=== PATIENT | female | born 1950 | race Caucasian/White ===

== ENCOUNTER → 2018-08-23 | Outpatient (CLI) | payer MEDICARE, BC ==
[2018-08-23 09:43] LABS: CHOLESTEROL RISK RATIO 2.478 (<5)
== END ==
LOC: M WUC 08:16
DX: E78.00 Pure hypercholesterolemia, unspecified (principal)

== ENCOUNTER 2020-09-12 13:31 | Emergency (ER) | payer MEDICARE, BC ==
[~2020-09-12] VITALS: Ht 165.1 cm; Wt 70.0 kg
[2020-09-12] MEDS ORDERED: VALS40TA9 PO (13:48)
[2020-09-12 14:27] LABS: BASO % 0.3 % (0.0-1.0); EOS % 0.3 % (0.0-3.0); HEMOGLOBIN 14.9 g/dl (12.0-15.5); LYMPH # 0.7 10^3/uL (1.5-5.0); LYMPH % 9.1 % (24.0-44.0); MEAN CORPUSCULAR HEMOGLOBIN 31.6 pg (27.0-33.0); MEAN CORPUSCULAR HGB CONC 32.4 g/dl (32.0-36.5); MEAN CORPUSCULAR VOLUME 97.7 fl (80.0-96.0); MONO # 0.5 10^3/uL (0.0-0.8); MONO % 7.4 % (2.0-8.0); NEUTROPHILS # 5.9 10^3/uL (1.5-8.5); NEUTROPHILS % 82.6 % (36.0-66.0); PLATELET COUNT, AUTOMATED 234 10^3/uL (150-450); RED BLOOD COUNT 4.71 10^6/uL (4.00-5.40); WHITE BLOOD COUNT 7.2 10^3/uL (4.0-10.0)
[2020-09-12 14:55] LABS: ALBUMIN 3.7 GM/DL (3.2-5.2); ALT/SGPT 21 U/L (12-78); BILIRUBIN,DIRECT 0.1 MG/DL (0.0-0.2); BILIRUBIN,TOTAL 0.4 MG/DL (0.2-1.0); CK-MB VALUE MASS 1.5 NG/ML (<3.6); CPK CREATINE PHOSPHOKINASE 93 U/L (26-192); LIPASE 243 U/L (73-393); MB/CK RELATIVE INDEX 1.61 (< OR =4); TOTAL PROTEIN 6.9 GM/DL (6.4-8.2); TROPONIN I < 0.02 NG/ML (< 0.10)
--- NOTE | 2020-09-12 17:24 | REP ---
INDICATION: epigastric and RUQ abdominal pain COMPARISON: None. TECHNIQUE: Real time fischer scale ultrasound examination using curved array transducer. FINDINGS: Liver is normal in contour, size, and echogenicity without focal hepatic lesions identified. Pancreas is incompletely evaluated due to interposed bowel gas. The gallbladder is normal and without gallstones, wall thickening, or pericholecystic fluid. No biliary ductal dilatation is appreciated and the common bile duct measures 2.6 mm diameter. Right kidney is normal in reniform shape without hydronephrosis and measures 9.3 x 5.1 x 5.6 cm. No ascites in the visualized right upper quadrant. IMPRESSION: Normal limited right upper quadrant ultrasound <Electronically signed by John Red > 09/12/20 [id number]
[2020-09-12 18:30] VITALS: BP 156/75
[2020-09-12] MEDS ORDERED: HYDROMORPHONE HCL 0.5 MG/ 0.5 ML SYRINGE (J1170 PER 1) IV ONE (18:45)
--- NOTE | 2020-09-12 19:12 | ECGEPIP ---
[facility] - ED Test Date: 2020-09-12 Pat Name: PATRIC STRONG Department: Room: - Gender: Female Manager Progressive Care: JONAH : 1950 Requested By: Melanie Moore Order Number: [id number] Reading MD: Melanie Moore Measurements Intervals [place] Rate: 80 P: 42 MT: 160 QRS: 37 QRSD: 84 T: 57 QT: 368 QTc: 424 Interpretive Statements Normal sinus rhythm Septal infarct , age undetermined Nonspecific ST T wave changes No prior ECG for comparison Electronically Signed on 09-12-2020 19:12:07 EDT by Melanie Moore
== END 2020-09-12 18:41 | disposition home or self-care (01) ==
LOC: M ED 13:31
DX: A08.4 Viral intestinal infection, unspecified (principal); I10 Essential (primary) hypertension; K21.9 Gastro-esophageal reflux disease without esophagitis; Z79.899 Other long term (current) drug therapy; Z88.1 Allergy status to other antibiotic agents; Z88.5 Allergy status to narcotic agent; Z88.8 Allergy status to other drugs, medicaments and biological substances